=== PATIENT | female | born 1975 | race Caucasian/White ===

== ENCOUNTER 2017-04-25 04:56 | Emergency (ER) | payer MEDICAID ==
[2017-04-25 07:40] VITALS: BP 114/70
== END 2017-04-25 07:41 | disposition home or self-care (01) ==
LOC: ED 04:56
DX: N12 Tubulo-interstitial nephritis, not specified as acute or chronic (principal); E11.9 Type 2 diabetes mellitus without complications
CPT/HCPCS: J0696; J1885; J2270; J2405